=== PATIENT | male | born 1980 | race Caucasian/White ===

== ENCOUNTER 2019-03-31 | Emergency (ER) | payer OTHER, BC ==
[~2019-03-31] MED LIST: ACETAMIN325 MG PO; ACETAMINOPHEN650 MG PO; AMLODIPINE10 MG PO; ASPIRIN ADULT L81 MG PO; ASPIRIN81 MG PO; BACTRIM DS1 TAB PO; CLINDAMYCIN150 MG PO; CORDARONE/200 MG/TAB PO; DEPO-MEDROL80 MG/ML IM; FUROSEMIDE20 MG PO; LISINOPRIL5 MG PO; LOPRESSOR 550 MG/TAB PO; METOPROL TAR25 MG PO; OXYCODONE HCL5 MG PO; OXYCODONE5 M1 PO; POT CHLORIDE10 ME1 PO; POTASSIUM CHLO10 MEQ PO; ROCEPHIN 2 GM2 GM IM; WARFARIN5 MG PO; ZESTRIL5 M1 PO
[2019-03-31] MEDS ORDERED: HYDROCO/APAP1 TA9 PO (16:03)
== END 2019-03-31 16:30 | disposition home or self-care (01) | DRG 563 ==
PROC: 0RSKXZZ Reposition Left Shoulder Joint, External Approach (ICD-10-PCS; principal; 2019-03-31)
DX: S43.015A Anterior dislocation of left humerus, initial encounter (principal); S42.021A Displaced fracture of shaft of right clavicle, initial encounter for closed fracture; V80.010A Animal-rider injured by fall from or being thrown from horse in noncollision accident, initial encounter; Y93.52 Activity, horseback riding

== ENCOUNTER 2022-10-28 10:01 | Emergency (ER) | payer BC ==
[~2022-10-28] VITALS: Ht 188 cm; Wt 94.4 kg
[~2022-10-28 10:01] MED LIST changes: +HYDROCO/APAP1 TA9 PO
[2022-10-28 10:14] VITALS: BP 178/105
[2022-10-28 10:46] VITALS: BP 168/100
[2022-10-28 10:46] LABS: BASO% 0.2 % (0-3); IMMATURE GRANULOCYTES 0.2 % (0.0-5.0); LYMPH% 24.8 % (15-41); MEAN CELL VOLUME 90.5 fL CALC (80.0-100.0); MEAN CORPUSCULAR HGB 31.1 pG CALC (26.0-32.0); MEAN CORPUSCULAR HGB CONC 34.3 g/dL CAL (32.0-36.0); MONO% 8.9 % (2-13); NEUT# 5.67 thou/uL (1.82-7.42); NEUT% 63.9 % (42-76); RED BLOOD COUNT 4.83 mill/uL (4.70-6.10); RED CELL DISTRI WIDTH 12.3 % (11.5-15.5)
[2022-10-28 10:47] LABS: HEMATOCRIT 43.7 % (39.0-50.0)
[2022-10-28 10:48] LABS: ALBUMIN 4.5 g/dL (3.2-5.0); ALKALINE PHOSPHATASE 60 u/l (38-126); ANION GAP 13 (6-22 (CALC)); BILIRUBIN, TOTAL 0.9 mg/dL (0.2-1.3); BUN 18 mg/dL (9-20); BUN/CREATININE RATIO 17 (12-20 (CALC)); CALCULATED LDLCHOLESTEROL 145 mg/dL (62-129 (CALC)); CARBON DIOXIDE 28 mmol/l (22-30); CHLORIDE 101 mmol/l (95-108); CHOLESTEROL HDL RATIO 5.8 (<4.4 (CALC)); CREATININE 1.1 mg/dL (0.7-1.3); GFR FOR AFR.AMER. > 60 ML/MIN (>=60 (CALC)); GFR OTHER RACES > 60 ML/MIN (>=60 (CALC)); HDL CHOLESTEROL 37 mg/dL (39.0-59.0); POTASSIUM 3.5 mmol/l (3.5-5.1); SGOT/AST 50 u/l (17-59); SODIUM 138 mmol/l (137-146); TOTAL CHOLESTEROL 215 mg/dl (0-199); TOTAL PROTEIN 7.2 g/dL (6.3-8.2); TOTAL TRIGLYCERIDES 164 mg/dl (0-149); VLDL CHOLESTROL 33 mg/dl (5-56 (CALC))
[2022-10-28 10:50] LABS: INTERNATIONAL NORMALIZED RATIO 1.4 RATIO (0.7-1.3); PROTHROMBIN TIME 13.2 SECONDS (9.0-12.5)
[2022-10-28 11:01] VITALS: BP 150/98
[2022-10-28 13:01] VITALS: BP 162/94
[2022-10-28 13:48] LABS: URINE BILIRUBIN - DIPSTICK Negative (NEGATIVE); URINE BLOOD DIPSTICK Negative (NEGATIVE); URINE GLUCOSE - DIPSTICK Negative (NEGATIVE); URINE KETONE Negative (NEGATIVE); URINE LEUK ESTERASE Negative (NEGATIVE); URINE NITRITE - DIPSTICK Negative (Negative); URINE PH 8.5 (4.5-8.0); URINE PROTEIN - DIPSTICK Trace mg/dL (NEG-TRACE); URINE SPECIFIC GRAVITY 1.015; URINE UROBILINOGEN - DIPSTICK 0.2 E.U./dL (0.2)
[2022-10-28 13:49] LABS: URINE COLOR Yellow
[2022-10-28 14:18] VITALS: BP 162/94
== END 2022-10-28 13:20 | disposition short-term general hospital (02) | DRG 301 ==
LOC: ED 10:01
PROVIDERS: Emergency Medicine
DX: I74.3 Embolism and thrombosis of arteries of the lower extremities (principal); Z95.2 Presence of prosthetic heart valve; Z96.641 Presence of right artificial hip joint; Z79.01 Long term (current) use of anticoagulants
CPT/HCPCS: J1644; Q9967